=== PATIENT | male | born 1965 | race American Indian/Alaskan Native ===

== ENCOUNTER 2017-09-04 19:38 | Emergency (ER) | payer SELFPAY ==
[~2017-09-04 19:38] MED LIST: ADRENALIN ONE
--- NOTE | 2017-09-04 20:07 | Emergency Department Report ---
ED CPR HPI - General Chief Complaint: Cardiac Arrest/CPR Stated Complaint: CARDIAC ARREST Time Seen by Provider: 09/04/17 19:54 Source: EMS Mode of arrival: Stretcher Limitations: Altered Mental Status, Physical Limitation - History of Present Illness Initial Comments: This is a 51 year-old male presents to the emergency department by EMS in cardiac arrest after he was found down and unresponsive and pulseless outside of his house. The patient was allegedly in PEA but does have a pacemaker. Apparently this caused him to get some defibrillations by the A[facility]. He was intubated with an LMA called [email or web address]. He received chest compressions, 2 rounds of epinephrine, IV access and they continued ACLS protocol to [facility]. Apparently they were working on the patient with ACLS protocol for about 15-20 minutes prior to arrival. The patient appeared to be in asystole upon arrival to the emergency department where we continued ACLS protocol. The patient's medications were brought with him and he appears to have a history of diabetes, hypertension and suspicion for CHF. ED Review of Systems ROS: Stated complaint: CARDIAC ARREST Other details as noted in HPI Comment: Unobtainable due to pts medical conditions ED Past Medical Hx - Past Medical History Hx Hypertension: Yes Hx Diabetes: Yes Additional medical history: pacemaker - Surgical History Additional Surgical History: unable to assess - Social History Smoking Status: Unknown if ever smoked ED Physical Exam - General Limitations: Altered Mental Status, Physical Limitation - Other Other exam information: GENERAL: Patient is ill-appearing and unresponsive. HENT: Normocephalic. Atraumatic. There is an LMA in place. EYES: Pupils are fixed and dilated. NECK: Supple. No meningitic signs are noted. There is no adenopathy noted. CHEST/LUNGS: No spontaneous lung sounds. HEART/CARDIOVASCULAR: There are no spontaneous heart sounds. ABDOMEN: Abdomen is soft. There is no abdominal distention. SKIN: Skin is cool but dry. NEURO: Patient is unresponsive to any verbal or painful stimuli. MUSCULOSKELETAL: No obvious deformities. There is no palpable radial or femoral pulse. - Intubation Time Out Performed: No Laryngoscope: other (glydescope) Size: 4 ET Tube Size: 7.5 Tube Secured Depth (cm): 24 Tube Secured Location: teeth Tube Placement Confirmation: visualized tube passing t, equal breath sounds bilat, confirmation by capnometr Intubation Complications: none ED Medical Decision Making - Medical Decision Making The patient arrived in asystole with an LMA in place after getting about 15-20 minutes of ACLS protocol including chest compressions and 2 rounds of epinephrine and some defibrillation by the AED. We immediately continued chest compressions and place the patient on the monitor. He appeared to be in asystole but there was occasional spikes that could've been his pacemaker or it could be very slow looking PEA. He was given epinephrine and sodium bicarbonate. The LMA was removed and the patient was intubated successfully with a glydescope. Patient had a total of 3 rounds of ACLS protocol including epinephrine, chest compressions and each rhythm and pulse checks on the patient to be in PEA or asystole and pulseless. After the third round, the ultrasound was used to look at the heart and there was no movement, squeeze or even fibrillation. At this point time of was called at 1951. The family is not yet here to notify them of his expiration. There is a roommate here who says that she knows someone spoke to him earlier in the day and he was working outside in the yard but otherwise she is unaware of what may have happened prior to presentation. We are waiting for the brother to get here to notify family. - Differential Diagnosis [place], dysrhythmia, PE Critical Care Time: Yes Critical care time in (mins) excluding proc time.: 15 Critical care attestation.: If time is entered above; I have spent that time in minutes in the direct care of this critically ill patient, excluding procedure time. Critical care time was spent on this patient during his initial evaluation, supervision of ACLS protocol, and discussion with the patient's family. This does not include the time spent for the intubation. Critical Care Time: 15 minutes ED Disposition Clinical Impression: Cardiac arrest Disposition: DC-20 Is pt being admited?: No Time of Disposition: 21:05
== END 2017-09-05 00:30 ==
LOC: ED 19:38
DX: I46.9 Cardiac arrest, cause unspecified (principal); I10 Essential (primary) hypertension; E11.9 Type 2 diabetes mellitus without complications; Z95.1 Presence of aortocoronary bypass graft
CPT/HCPCS: 31500; 99285; J0171